=== PATIENT | female | born 1955 | race Caucasian/White ===

== ENCOUNTER 2016-03-22 19:31 | Observation (INO) | payer OTHER ==
[2016-03-22] MEDS ORDERED: Zofran 4 MG/2 ML VIAL IV ONE (20:07)
[2016-03-22] MEDS ORDERED: Zofran 4 MG/2 ML VIAL ONE (20:13)
[2016-03-22] MEDS ORDERED: Sodium Chloride 0.9% 1000 ML 1,000 ML ONE (20:13)
--- NOTE | 2016-03-22 20:14 | ERPHSYRPT ---
- History of Present Illness Time Seen by Provider: 03/22/16 20:05 Historian: patient Exam Limitations: no limitations Patient Subjective Stated Complaint: states that she was trying to eat a steak at 1430 today and has had a piece stuck in her throat since that time - was able to vomit a few pieces out but still has the sensation of foreign body Triage Nursing Assessment: ambulatory to treatment area - steady gait - moves all extremities with equal strength. alert/oriented - unpleasant affect. skin flushed/hot/dry - no rash/injury. resps shallow per discomfort Physician History: This is a 60-year-old white female who arrives with complaint of a foreign body sensation anterior throat she states that she was eating steak around 2:00 this afternoon when she began to choke she states that she feels like there is a foreign body in her throat she states she's been vomiting. Patient begins vomiting and retching loudly shortly after I began to interview her. Past medical history includes hypothyroidism, GERD. Timing/Duration: today (14:30) Activities at Onset: other (eating) Quality: other (foreign body sensation in esophagus) Abdominal Pain Onset Location: other Pain Radiation: no radiation Severity of Pain-Max: mild Severity of Pain-Current: mild Modifying Factors: Improves With: vomiting, other (foreign body sensation in esophagus). Worsens With: analgesics, antacids, breathing, coughing, defecating , eating, exercise, lying down, movement, palpation, rest, position Associated Symptoms: nausea, vomiting, other (foreign body sensation in esophagus), No back, No chest pain, No diaphoresis, No diarrhea, No fever/chills , No fatigue, No headache, No heartburn, No loss of appetite, No neck pain, No rash, No shortness of breath, No syncope, No testicular pain, No weakness Previous symptoms: no prior history Allergies/Adverse Reactions: Penicillins Allergy (Verified 03/22/16 19:34) Home Medications: Esomeprazole Magnesium [Nexium] 20 mg PO DAILY 03/22/16 [History] Levothyroxine Sodium [Synthroid] 25 mcg PO DAILY 03/22/16 [History] Sertraline HCl 100 mg [Zoloft 100 MG] 100 mg PO DAILY 03/22/16 [History] Hx Tetanus, Diphtheria Vaccination/Date Given: Yes Hx Influenza Vaccination/Date Given: No Hx Pneumococcal Vaccination/Date Given: No Immunizations Up to Date: Yes - Review of Systems Constitutional: No Fever, No Chills Eyes: No Symptoms Ears, Nose, & Throat: No Symptoms, Other (dysphagia foreign-body sensation in esophagus) Cardiac: No Chest Pain, No Edema, No Syncope Abdominal/Gastrointestinal: Nausea, Vomiting, Other (discussed aphasia foreign- body sensaation in esophagus), No Abdominal Pain, No Diarrhea Genitourinary Symptoms: No Dysuria Musculoskeletal: No Back Pain, No Neck Pain Skin: No Rash Neurological: No Dizziness, No Focal Weakness, No Sensory Changes Psychological: No Symptoms Endocrine: No Symptoms All Other Systems: Reviewed and Negative - Past Medical History Pertinent Past Medical History: Yes Endocrine Medical History: Hypothyroidism GI Medical History: GERD - Past Surgical History Past Surgical History: Yes Gastrointestinal: Cholecystectomy - Social History Smoking Status: Never smoker Exposure to second hand smoke: No Drug Use: none Patient Lives Alone: No - Nursing Vital Signs Nursing Vital Signs: Initial Vital Signs Temperature 97.8 F Temperature Source Oral Pulse Rate 92 Respiratory Rate 16 Blood Pressure 122/68 Pain Intensity 8 - Physical Exam General Appearance: moderate distress, other (well-developed white female obese , retching, flushed in appearance) Eye Exam: PERRL/EOMI, eyes nml inspection Ears, Nose, Throat Exam: normal ENT inspection, pharynx normal, moist mucous membranes Neck Exam: normal inspection, non-tender, supple, full range of motion Respiratory Exam: normal breath sounds, lungs clear, No respiratory distress Cardiovascular Exam: regular rate/rhythm, normal heart sounds Gastrointestinal/Abdomen Exam: soft, No tenderness, No mass Back Exam: normal inspection, normal range of motion, No CVA tenderness, No vertebral tenderness Extremity Exam: normal inspection, normal range of motion, pelvis stable Neurologic Exam: alert, oriented x 3, cooperative, normal mood/affect, nml cerebellar function, sensation nml, No motor deficits Skin Exam: normal color, warm, dry SpO2 Interpretation: normal (94%) SpO2: 94 Oxygen Delivery: Room Air - Course Nursing assessment & vital signs reviewed: Yes EKG Interpreted by Me: RATE (84 bpm), Sinus Rhythm, Left [place] Deviation, Right Bundle Branch Block, Other (EKG, sinus rhythm 84 bpm left axis deviation right bundle branch block no acute ST or T wave changes noted, no old EKG for comparison) - Radiology Exams Chest X-ray Interpretation: Interpreted by me, Negative, No Pneumonia, No Pneumothorax Ordered Tests: Active Orders 24 hr Category Date Time Status EKG-ER Only STAT Care 03/22/16 20:07 Active IV Insertion STAT Care 03/22/16 20:07 Active CHEST 1 VIEW (PORTABLE) Stat Exams 03/22/16 20:08 Taken AMYLASE Stat Lab 03/22/16 19:50 Completed CBC W DIFF Stat Lab 03/22/16 19:50 Completed CMP Stat Lab 03/22/16 19:50 Completed LIPASE Stat Lab 03/22/16 19:50 Completed TROPONIN Stat Lab 03/22/16 19:50 Completed Medication Summary Generic Name Dose Route Start Last Admin Trade Name Freq PRN Reason Stop Dose Admin Sodium Chloride 1,000 mls @ 100 mls/hr 03/22/16 20:15 03/22/16 20:20 Sodium Chloride 0.9% 1000 Ml IV 04/21/16 20:14 100 mls/hr .Q10H GIL Administration Discontinued Medications Generic Name Dose Route Start Last Admin Trade Name Freq PRN Reason Stop Dose Admin Glucagon 1 mg 03/22/16 20:37 03/22/16 20:42 Glucagen 1 Mg IV 03/22/16 20:38 1 mg STAT ONE Administration Glucagon Confirm 03/22/16 20:38 Glucagen 1 Mg Administered 03/22/16 20:39 Dose 1 mg .ROUTE .STK-MED ONE Glucagon 1 mg 03/22/16 21:23 03/22/16 21:37 Glucagen 1 Mg IV 03/22/16 21:24 1 mg STAT ONE Administration Sodium Chloride Confirm 03/22/16 20:13 Sodium Chloride 0.9% 1000 Ml Administered 03/22/16 20:14 Dose 1,000 mls @ ud .ROUTE .STK-MED ONE Ondansetron HCl 4 mg 03/22/16 20:07 03/22/16 20:21 Zofran 4 Mg/2 Ml Vial IV 03/22/16 20:08 4 mg STAT ONE Administration Ondansetron HCl Confirm 03/22/16 20:13 Zofran 4 Mg/2 Ml Vial Administered 03/22/16 20:14 Dose 4 mg .ROUTE .STK-MED ONE Promethazine HCl 12.5 mg 03/22/16 21:22 03/22/16 21:26 Phenergan 25 Mg Inj IV 03/22/16 21:23 12.5 mg STAT ONE Administration Promethazine HCl Confirm 03/22/16 21:24 Phenergan 25 Mg Inj Administered 03/22/16 21:25 Dose 25 mg .ROUTE .STK-MED ONE Lab/Rad Data: Laboratory Result Diagrams 03/22/16 19:50 03/22/16 19:50 Laboratory Results 03/22/16 03/22/16 Range/Units 19:50 19:50 WBC 13.0 H (4.0-10.5) K/mm3 RBC 4.73 (4.1-5.4) M/mm3 Hgb 14.0 (12.0-16.0) gm/dl Hct 41.7 (35-47) % MCV 88.2 (78-100) fl MCH 29.6 (26-32) pg MCHC 33.6 (32-36) g/dl RDW 12.8 (11.5-14.0) % Plt Count 243 (150-450) K/mm3 MPV 11.6 H (6-9.5) fl Gran % 70.5 H (36.0-66.0) % Lymphocytes % 22.0 L (24.0-44.0) % Monocytes % 5.8 (0.0-12.0) % Eosinophils % 1.2 (0.00-5.0) % Basophils % 0.5 (0.0-0.4) % Basophils # 0.06 (0-0.4) Sodium 147 H (136-145) mEq/L Potassium 3.7 (3.5-5.1) mEq/L Chloride 109 H (98-107) mEq/L Carbon Dioxide 23.3 (21-32) mEq/L Anion Gap 18.7 H (5-15) MEQ/L BUN 21 H (9-20) mg/dL Creatinine 0.96 (0.55-1.30) mg/dl Estimated GFR > 60 ML/MIN Glucose 136 H (70-110) MG/DL Calcium 9.4 (8.5-10.1) mg/dL Total Bilirubin 0.3 (0.2-1.0) mg/dL AST 21 (15-37) U/L ALT 16 (12-78) U/L Alkaline Phosphatase 95 (46-116) U/L Troponin I < 0.017 (0.000-0.056) ng/ml Serum Total Protein 8.0 (6.4-8.2) gm/dL Albumin 4.4 (3.4-5.0) g/dL Amylase 80 (25-115) U/L Lipase 221 (73-393) U/L - Progress Progress: improved Progress Note: 03/22/16 22:14 Patient feeling somewhat better now no longer vomiting. States she feels better as far as her foreign body however she states she still feels strange. Patient had received glucagon 1 mg IV 2, Zofran, Phenergan. Will discuss case with the doctor pony edger for Dr. Shen physician pony edger for Dr. Shen . 03/22/16 22:18 Patient feeling better. After receiving Zofran, glucagon 1 mg 2 and Phenergan. Is not vomiting at this time. She states she is not sure if she has esophageal foreign body or not states it feels funny. Case discussed with Dr. Cheek. Will place on observation telemetry provide IV fluids. - Departure Time of Disposition: 22:20 Departure Disposition: Observation Clinical Impression: rule out esophageal full bolus Vomiting Qualifiers: Vomiting type: unspecified Vomiting Intractability: non-intractable Nausea presence: without nausea Qualified Code(s): R11.11 - Vomiting without nausea Dysphagia Qualifiers: Dysphagia type: unspecified Qualified Code(s): R13.10 - Dysphagia, unspecified Condition: Fair Critical Care Time: No
[2016-03-22 20:15] LABS: BASOPHIL % 0.5 % (0.0-0.4); Eosinophil % 1.2 % (0.00-5.0); Granulocytes % 70.5 % (36.0-66.0); Mean Cell Volume 88.2 fl (78-100); Mean Corpuscular Hemoglobin 29.6 pg (26-32); Mean Platelet Volume 11.6 fl (6-9.5); Monocytes % 5.8 % (0.0-12.0); Platelet Count 243 K/mm3 (150-450); Red Blood Count 4.73 M/mm3 (4.1-5.4); Red Cell Distribution Width 12.8 % (11.5-14.0)
[2016-03-22] MEDS ORDERED: Sodium Chloride 0.9% 1000 ML 1,000 ML IV SCH ×2 (20:15→23:08)
[2016-03-22 20:37] LABS: ALBUMIN 4.4 g/dL (3.4-5.0); ALKALINE PHOSPHATASE 95 U/L (46-116); ANION GAP 18.7 MEQ/L (5-15); BILIRUBIN,TOTAL 0.3 mg/dL (0.2-1.0); BLOOD UREA NITROGEN 21 mg/dL (9-20); CHLORIDE 109 mEq/L (98-107); Carbon Dioxide 23.3 mEq/L (21-32); Glucose 136 MG/DL (70-110); LIPASE 221 U/L (73-393); Potassium 3.7 mEq/L (3.5-5.1); SGOT/AST 21 U/L (15-37); SGPT/ALT 16 U/L (12-78); SODIUM 147 mEq/L (136-145)
[2016-03-22] MEDS ORDERED: GlucaGen 1 MG IV ONE ×2 (20:37→21:23)
[2016-03-22] MEDS ORDERED: GlucaGen 1 MG ONE (20:38)
[2016-03-22 20:44] LABS: TROPONIN < 0.017 ng/ml (0.000-0.056)
[2016-03-22] MEDS ORDERED: Phenergan 25 MG INJ IV ONE (21:22)
[2016-03-22] MEDS ORDERED: Phenergan 25 MG INJ ONE (21:24)
[2016-03-22] MEDS ORDERED: Zofran 4 MG/2 ML VIAL IV PRN (23:08)
[2016-03-23 05:40] LABS: BASOPHIL % 0.3 % (0.0-0.4); Eosinophil % 0.5 % (0.00-5.0); Granulocytes % 76.7 % (36.0-66.0); Lymphocytes % 16.1 % (24.0-44.0); Mean Cell Volume 90.7 fl (78-100); Mean Platelet Volume 11.5 fl (6-9.5); Monocytes % 6.4 % (0.0-12.0); Platelet Count 187 K/mm3 (150-450); Red Blood Count 3.96 M/mm3 (4.1-5.4); Red Cell Distribution Width 12.7 % (11.5-14.0); White Blood Count 11.9 K/mm3 (4.0-10.5)
[2016-03-23 05:56] LABS: Mean Corpuscular Hemoglobin 29.2 pg (26-32)
[2016-03-23 06:22] LABS: ALBUMIN 3.6 g/dL (3.4-5.0); ALKALINE PHOSPHATASE 74 U/L (46-116); BILIRUBIN,TOTAL 0.5 mg/dL (0.2-1.0); BLOOD UREA NITROGEN 28 mg/dL (9-20); CHLORIDE 112 mEq/L (98-107); Carbon Dioxide 30.4 mEq/L (21-32); Glucose 100 MG/DL (70-110); Potassium 3.7 mEq/L (3.5-5.1); SGOT/AST 18 U/L (15-37); SGPT/ALT 14 U/L (12-78); SODIUM 149 mEq/L (136-145); Total Protein 6.8 gm/dL (6.4-8.2)
--- NOTE | 2016-03-23 08:48 | XRAY ---
Indication: Possible foreign body. Nausea and vomiting. Comparison: None Portable chest demonstrates normal heart and lungs. No radiopaque foreign body. Bony thorax intact with minimal scoliosis.
[2016-03-23 11:23] VITALS: BP 128/60; PULSE 71; O2SAT 94
--- NOTE | 2016-03-23 13:22 | CONS ---
CONSULT DATE: 03/23/16 This patient was seen for Dr. Manzano who was on-call for our group today. HISTORY OF PRESENT ILLNESS: Apparently, she was eating steak at 2:30 or something up at the [place] [employer] and felt like something stuck in her throat. Vomited a few pieces, but still had the sensation of foreign body. She came in yesterday afternoon or early evening. I am not sure whether the surgeon on-call, Dr. Maliha Manzano, was contacted or not at that time. The patient got admitted. I just found out about the patient today. Dr. Manzano in the office asked me to evaluate the patient. This morning, she feels like thinks have passed through. She has had some intermittent swallowing problems in the past, but feels like whatever was in there has passed already. PAST MEDICAL HISTORY: Reflux, hypothyroidism. HOME MEDICATIONS: Has been on Nexium, Synthroid, and Zoloft. PAST SURGICAL HISTORY: She denied any prior upper endoscopy. She had had cholecystectomy in the past. FAMILY HISTORY: Negative for esophageal cancer. SOCIAL HISTORY: No smoking. No alcohol abuse. REVIEW OF SYSTEMS: 10 systems reviewed per admission assessment. No chest pain or palpitations. She is swallowing better now. No problems with keeping her saliva or anything down at this time. She does wear glasses. No chest pain or shortness of breath. Other systems negative or noncontributory other than above or per preadmission questionnaire/admission assessment. PHYSICAL EXAMINATION: GENERAL: No acute distress. HEENT: Sclerae nonicteric. She is wearing glasses. NECK: No JVD. CHEST: Equal excursion. Nonlabored breathing. She complains of things are raw kind of in the mid to upper esophagus area. ABDOMEN: Nondistended. EXTREMITIES: No significant edema. NEURO: She seems alert. She seems to be moving her extremities symmetrically. WBC was 13 on admission, Hgb 14, platelets 243,000. Liver function tests unremarkable. Amylase and lipase normal. WBC was 11 down from 13 on admission. Chest x-ray grossly unremarkable done in the Emergency Room yesterday. IMPRESSION: 1. DYSPHAGIA, QUESTION OF WHETHER SHE HAD A TRANSIENT RETAINED FOOD BOLUS. WHETHER SHE HAS ANY NARROWING OR NOT OR JUST REFLUX ESOPHAGITIS IS UNCLEAR. Either way, recommended upper endoscopy. Pending findings, possible consideration of dilatation vs upper endoscopy and possibly consideration of dilatation at a different time frame depending on any issues with esophageal viability secondary to having a food bolus in place. General risks of bleeding; infection; risk of bowel injury or perforation possibly requiring major operation; general risk of anesthesia or sedation. She has had some problems in the past. Do feel she would benefit from this, but at this time, she thinks it might be a good idea, but she does not want it done at this time. She is not agreeing to procedure right now. She would rather consider follow-up as an outpatient. Therefore, she is not agreeing to any procedure at this time. She does understand risk of any delayed diagnosis of any more serious etiology of her symptoms, but she doesn't want it done at this time, so likely we can advance her diet or at least try her on liquids and she can be released when up to her medical physician as she is not agreeing to endoscopy at this time. Will sign off. She can arrange through the office for an outpatient upper endoscopy if she changes her mind. Again, this patient was seen for Dr. Сергей Manzano who was on-call for our group today. Thank you for the consult.
--- NOTE | 2016-03-23 18:40 | PCM.HP ---
History of Present Illness - Chief Complaint Chief Complaint: rule out esophageal full bolus Date: 03/23/16 History of Present Illness: is a 60 year old female. who follows with HEAD UP OPERATOR HELPER at Dr. Sheridan's office with hx of hypothyroidism who has been having increasing difficulty with getting choked while eating and got choked on a piece of steak yesterday evening and could not get anythign down and couldn't get it up. She presented to the ED she was given glucagon and last night she felt better overnight and no longer has the sensation and is now thirsty. She has not had EGD in the past. She otherwise feels well with no other complaints. - Review of Systems Constitutional: No Fever, No Chills Eyes: No Symptoms Ears, Nose, & Throat: No Symptoms Respiratory: No Cough, No Short Of Breath Cardiac: No Chest Pain, No Edema, No Syncope Abdominal/Gastrointestinal: No Abdominal Pain, No Nausea, No Vomiting, No Diarrhea Genitourinary Symptoms: No Dysuria Musculoskeletal: No Back Pain, No Neck Pain Skin: No Rash Neurological: No Dizziness, No Focal Weakness, No Sensory Changes Psychological: No Symptoms Endocrine: No Symptoms Hematologic/Lymphatic: No Symptoms Immunological/Allergic: No Symptoms Medications & Allergies Home Medications: Home Medication List Esomeprazole Magnesium [Nexium] 20 mg PO DAILY 03/22/16 [History Confirmed 03/23] Levothyroxine Sodium [Synthroid] 25 mcg PO DAILY 03/22/16 [History Confirmed 05/08] Sertraline HCl 100 mg [Zoloft 100 MG] 100 mg PO DAILY 03/22/16 [History Confirmed 03/23/16] Alprazolam 0.25 mg [xanAX 0.25 MG] 0.25 mg PO DAILY PRN PRN 03/23/16 [ History Confirmed 03/23/16] Multivitamin/Iron/Folic Acid [Multi Complete-Iron Tablet] 1 each PO DAILY [History Confirmed 03/23/16] Allergies/Adverse Reactions: Allergies Allergy/AdvReac Type Severity Reaction Status Date / Time Penicillins Allergy Verified 03/22/16 19:34 - Past Medical History Past Medical History: Yes Neurological History: No Pertinent History ENT History: No Pertinent History Cardiac History: No Pertinent History Respiratory History: No Pertinent History Endocrine Medical History: Hypothyroidism Musculoskelatal History: No Pertinent History GI Medical History: GERD History: No Pertinent History Pyscho-Social History: No Pertinent History Reproductive Disorders: No Pertinent History - Female History Are you now?: No - Past Surgical History Past Surgical History: Yes Neuro Surgical History: No Pertinent History Cardiac History: No Pertinent History Respiratory Surgery: No Pertinent History GI Surgical History: Cholecystectomy Genitourinary Surgical Hx: No Pertinent History Musculskeletal Surgical Hx: No Pertinent History Female Surgical History: No Pertinent History - Social History Smoking Status: Former smoker Exposure to second hand smoke: No Alcohol: Rarely Drug Use: none - Physical Exam Vital Signs: Vital Signs - 24 hr Temp Pulse Resp BP BP Pulse Ox 03/23/16 11:22 98.0 F 71 18 128/60 94 L 03/23/16 07:07 98.1 F 73 18 100/54 93 L 03/23/16 04:00 98.2 F 80 16 106/50 94 L 03/23/16 00:02 98.2 F 79 18 124/60 94 L 03/22/16 22:21 94 L 03/22/16 22:00 92 H 16 122/68 93 L 03/22/16 20:41 90 18 142/58 94 L 03/22/16 19:36 97.8 F 112 H 16 94 L General Appearance: no apparent distress, alert Neurologic Exam: alert, oriented x 3, cooperative, normal mood/affect, nml cerebellar function, nml station & gait, sensation nml, No motor deficits Eye Exam: PERRL/EOMI, eyes nml inspection Ears, Nose, Throat Exam: normal ENT inspection, TMs normal, pharynx normal, moist mucous membranes Neck Exam: normal inspection, non-tender, supple, full range of motion Respiratory Exam: normal breath sounds, lungs clear, No respiratory distress Cardiovascular Exam: regular rate/rhythm, normal heart sounds, normal peripheral pulses Gastrointestinal/Abdomen Exam: soft, normal bowel sounds, No tenderness, No mass Back Exam: normal inspection, normal range of motion, No CVA tenderness, No vertebral tenderness Extremity Exam: normal inspection, normal range of motion, pelvis stable Skin Exam: normal color, warm, dry, No rash Lymphatic Exam: No adenopathy Results - Labs Lab/Micro Results: Lab Results-Last 24 Hours 01/02/17 01/02/17 Range/Units 05:20 05:20 WBC 11.9 H (4.0-10.5) K/mm3 RBC 3.96 L (4.1-5.4) M/mm3 Hgb 11.6 L (12.0-16.0) gm/dl Hct 35.9 (35-47) % MCV 90.7 (78-100) fl MCH 29.2 (26-32) pg MCHC 32.3 (32-36) g/dl RDW 12.7 (11.5-14.0) % Plt Count 187 (150-450) K/mm3 MPV 11.5 H (6-9.5) fl Gran % 76.7 H (36.0-66.0) % Lymphocytes % 16.1 L (24.0-44.0) % Monocytes % 6.4 (0.0-12.0) % Eosinophils % 0.5 (0.00-5.0) % Basophils % 0.3 (0.0-0.4) % Basophils # 0.04 (0-0.4) Sodium 149 H (136-145) mEq/L Potassium 3.7 (3.5-5.1) mEq/L Chloride 112 H (98-107) mEq/L Carbon Dioxide 30.4 (21-32) mEq/L Anion Gap 10.0 (5-15) MEQ/L BUN 28 H (9-20) mg/dL Creatinine 0.88 (0.55-1.30) mg/dl Estimated GFR > 60 ML/MIN Glucose 100 (70-110) MG/DL Calcium 8.5 (8.5-10.1) mg/dL Total Bilirubin 0.5 (0.2-1.0) mg/dL AST 18 (15-37) U/L ALT 14 (12-78) U/L Alkaline Phosphatase 74 (46-116) U/L Serum Total Protein 6.8 (6.4-8.2) gm/dL Albumin 3.6 (3.4-5.0) g/dL Assessment/Plan (1) Dysphagia Status: Acute Qualifiers: Dysphagia type: unspecified Qualified Code(s): R13.10 - Dysphagia, unspecified Code(s): R13.10 - DYSPHAGIA, UNSPECIFIED (2) Esophageal foreign body Status: Acute Assessment & Plan: we recommended evaluation for possible EGD. Dr. Pang was consulted and evaluated the patient. She did not want to have this done today. She was swallowing well and tolerating po well so we recommend having an EGD as an outpatient. Speech therapy swallowing evaluation was also recommended by Dr. Pang and this is not available today in hospital and patient would like to be discharged and thus was. Code(s): T18.108A - UNSP FOREIGN BODY IN ESOPHAGUS CAUSING OTH INJURY, INIT
== END 2016-03-23 13:00 | disposition home or self-care (01) ==
LOC: ED 19:31 → MED SURG 22:48
PROVIDERS: ADMIT Family Medicine; ATTEND Family Medicine
DX: R13.10 Dysphagia, unspecified (principal); T18.108A Unspecified foreign body in esophagus causing other injury, initial encounter; E03.9 Hypothyroidism, unspecified; K21.9 Gastro-esophageal reflux disease without esophagitis
CPT/HCPCS: 36000; 36415; 71010; 80053; 82150; 83690; 84484; 85025; 93005; 96360; 96361; 96374; 96375; 96376; 99284; G0378; J1610; J2405; J2550